=== PATIENT | female | born 1950 | race Caucasian/White ===

== ENCOUNTER 2019-09-06 14:56 | Outpatient (REF) | payer MEDICARE, BC, SELFPAY ==
[2019-09-06 21:12] LABS: Abs Immature Grans 0.05 k/cumm (0.0-0.09); Absolute Basophil Count 0.01 k/cumm (0.0-0.2); Absolute Eosinophil Count 0.27 k/cumm (0.0-0.7); Absolute Lymphocyte Count 1.48 k/cumm (1.2-3.4); Absolute Monocyte Count 1.22 k/cumm (0.11-0.7); Absolute Neutrophil Count 10.96 k/cumm (1.2-6.7); Basophils % 0.1; Eosinophils % 1.9; HCT 42.8 % (36.0-46.0); HGB 13.7 g/dL (12.0-15.5); Immature Grans % 0.4 %; Lymphocytes % 10.6; Mean Corpuscular Volume 87.3 fL (80-95); Mean Platelet Volume 11.1 fL (8.0-11.0); Monocytes % 8.7; Neutrophils % 78.3; Platelet Count 194 x1000/uL (130-400); RBC Distribution Width 14.3 % (11.7-14.6)
== END 2019-09-06 15:16 ==
LOC: NCHCN 14:56
PROVIDERS: Visit Provider Registered Nurse
DX: R10.9 Unspecified abdominal pain (principal); Z87.19 Personal history of other diseases of the digestive system; R82.90 Unspecified abnormal findings in urine
CPT/HCPCS: 85025; 87086

== ENCOUNTER 2020-07-11 21:27 | Outpatient (REF) | payer MEDICARE, BC, SELFPAY ==
[2020-07-17 15:06] LABS: IgA 270 mg/dL (85-499); Interpretation (See Note); Tissue Transglutaminase IgA <1.2 U/mL (<4.0)
== END 2020-07-11 21:47 ==
LOC: NCHCN 21:27
PROVIDERS: Visit Provider Family Medicine
DX: R10.9 Unspecified abdominal pain (principal)
CPT/HCPCS: 82784; 83516

== ENCOUNTER 2021-10-03 18:07 | Outpatient (REF) | payer MEDICARE, SELFPAY ==
[2021-10-03 21:08] LABS: Calculated LDL 122 mg/dL (<100); Cholesterol 221 mg/dL (<200); HDL Cholesterol 80 mg/dL (40-60); Triglyceride 97 mg/dL (<150)
[2021-10-04 04:48] LABS: Vitamin D 25 Total 36.6 ng/mL (30-100)
== END 2021-10-03 18:08 | disposition home or self-care (01) ==
LOC: NCHCN 18:07
PROVIDERS: Visit Provider Family Medicine
DX: M81.0 Age-related osteoporosis without current pathological fracture (principal)
CPT/HCPCS: 80061; 82306

== ENCOUNTER 2022-01-11 20:57 | Outpatient (REF) | payer MEDICARE, SELFPAY ==
[2022-01-13 21:09] LABS: COVID-19 RT-PCR UVMMC Result Negative (Negative)
== END 2022-01-11 20:58 | disposition home or self-care (01) ==
LOC: NCHCN 20:57
PROVIDERS: Visit Provider Registered Nurse
DX: Z20.822 Contact with and (suspected) exposure to COVID-19 (principal); J06.9 Acute upper respiratory infection, unspecified
CPT/HCPCS: U0003

== ENCOUNTER 2022-10-09 13:32 | Outpatient (REF) | payer MEDICARE, SELFPAY ==
[2022-10-11 20:11] LABS: Campylobacter PCR Negative (Negative); Salmonella PCR Negative (Negative); Shiga Toxin PCR Negative (Negative); Shigella/Enteroinvasive Ecoli Negative (Negative)
== END 2022-10-09 13:33 | disposition home or self-care (01) ==
LOC: NCHCN 13:32
PROVIDERS: Visit Provider Family Medicine
DX: R10.9 Unspecified abdominal pain (principal); R19.4 Change in bowel habit
CPT/HCPCS: 87329; 87505

== ENCOUNTER → 2023-10-31 01:12 | Outpatient (CLI) | payer MEDICARE, SELFPAY ==
--- NOTE | 2023-10-31 | DI.MAMMO_ITS ---
Exam(s) MAMMO SCREENING EXAM: MAMMO SCREENING CLINICAL HISTORY: Z12.31 Encounter for screening mammogram for malig neop of breast. TECHNIQUE: Bilateral full field digital CC and MLO mammographic images were obtained with 3D tomosyn thesis and utilizing computer aided detection (CAD). COMPARISON: Prior outside mammograms were reviewed. FINDINGS: There has been no significant change in the appearance and distribution of the fibroglandular tissue. There are no new spiculated masses nor malignant appearing microcalcification groups. There is no significant architectural distortion nor skin thickening-retraction. IMPRESSION: No radiographic evidence of malignancy. BI-RADS Category 1 - Negative Breast Density - Category B - Scattered areas of fibroglandular density Breast density Category C or D implies that the patient has dense breast tissue. Dense breast tissue can make it harder to find cancer on a mammogram. Dense breast tissue is also associated with an incr eased risk of breast cancer. This information about the result of the mammogram report was provided to the patient to raise their awareness. Use this report when you speak with the patient about their risks for breast cancer, which includes their family history. At that time, you may recommend additional screening tests (Ultrasoun d or MRI) as these tests may add significant information. A negative radiographic report should not delay biopsy if a dominant or clinically suspicious mass is present. Up to ten percent of cancers are not identified on mammography. A negative report may reinforce clinical impression. Adenosis and dense breasts may obscure an underlying neoplasm. False positive reports average 6 to 10%. Patient will receive a letter notifying them of these results.
== END ==
PROVIDERS: Visit Provider Family Medicine
DX: Z12.31 Encounter for screening mammogram for malignant neoplasm of breast (principal)
CPT/HCPCS: 77063; 77067

== ENCOUNTER 2024-10-20 15:04 | Outpatient (REF) | payer MEDICARE, SELFPAY ==
[2024-10-20 21:15] LABS: HCT 46.3 % (36.0-46.0); MCH 28.9 pg (27.0-33.0); MCHC 32.4 % (32.0-36.0); MCV 89 fL (80-95); MPV 11.8 fL (8.0-11.0); Platelet Count 254 10^3/uL (130-400); RBC 5.19 10^6/uL (3.93-5.22); RDW 13.2 % (11.7-14.6); WBC 6.92 10^3/uL (4.4-10.8)
[2024-10-20 21:39] LABS: Anion Gap 6.5 mmol/L (3-11); BUN 13 mg/dL (7-18); CO2 35.5 mmol/L (21.0-32.0); CREATININE 0.7 mg/dL (0.55-1.02); Calcium 9.6 mg/dL (8.5-10.1); Chloride 102 mmol/L (98-107); Estimated GFR 90.14 (mL/min/1.73m2); Glucose 69 mg/dL (74-106); Potassium 4.2 mmol/L (3.5-5.1); Sodium 144 mmol/L (136-145); TSH (W/Ref FT4) 2.75 uIU/mL (0.36-3.74)
== END 2024-10-20 15:05 | disposition home or self-care (01) ==
LOC: NCHCN 15:04
PROVIDERS: PCP Family Medicine; Visit Provider Family Medicine
DX: R53.83 Other fatigue (principal)
CPT/HCPCS: 80048; 85027; 84443